=== PATIENT | male | born 1965 | race Caucasian/White ===

== ENCOUNTER → 2018-07-31 | Outpatient (CLI) | payer OTHER | LOC: M WUC 10:16 | DX: M54.5 Low back pain (principal) | CPT/HCPCS: 72110 ==

== ENCOUNTER → 2019-04-30 | Outpatient (CLI) | payer OTHER ==
--- NOTE | 2019-04-30 14:12 | REP ---
Clinical: Pain. Technique: AP, lateral, bilateral oblique and sunrise views of the right knee. Findings: Mild tricompartmental osteoarthritic degenerative changes include cortical irregularity, subchondral sclerosis, minimal joint space narrowing, and early osteophytosis. Lateral view cannot exclude small suprapatellar effusion. No acute fracture or dislocation. Impression: Mild tricompartmental osteoarthritic degenerative changes. Electronically Signed by Gurjit Evans MD 04/30/2019 02:05 P
== END ==
LOC: M WUC 13:43
PROVIDERS: ATTEND Nurse Practitioner Family
DX: M17.11 Unilateral primary osteoarthritis, right knee (principal); M25.761 Osteophyte, right knee

== ENCOUNTER → 2019-07-26 | Outpatient (CLI) | payer BC ==
--- NOTE | 2019-07-27 01:53 | REP ---
Clinical: Left shoulder pain. Technique: Internal rotation, external rotation, and Y view of the left shoulder. Findings: The acromioclavicular joint appears intact and normal. Humeral head appears normal. Subtle cortical irregularity along the inferior margin of the ossified glenoid rim cannot be excluded. No acute fracture dislocation. Subacromial space is within normal limits. Impression: Possible mild degenerative changes along the inferior margin of the glenoid. Electronically Signed by Gurjit Evans MD 07/27/2019 01:45 A
== END ==
LOC: M WUC 15:29
PROVIDERS: ATTEND Nurse Practitioner Adult Health
DX: M25.512 Pain in left shoulder (principal)

== ENCOUNTER → 2021-08-13 | Outpatient (REF) | payer BC | LOC: M LAB REF 11:12 | PROVIDERS: ATTEND Physician Assistant | DX: R05.9 Cough, unspecified (principal) ==

== ENCOUNTER → 2022-01-28 | Outpatient (REF) | payer BC ==
[2022-01-28 18:36] LABS: HEPATITIS B CORE ANTIBODY IGM NEGATIVE (NEGATIVE); HEPATITIS B SURFACE ANTIGEN NEGATIVE (NEGATIVE); HEPATITIS C VIRUS ABY INDEX 0.2 INDEX (<0.8)
== END ==
LOC: M LAB REF 16:13
PROVIDERS: ATTEND Nurse Practitioner Adult Health
DX: R74.8 Abnormal levels of other serum enzymes (principal)

== ENCOUNTER → 2022-02-07 | Outpatient (CLI) | payer BC | LOC: M RAD 11:47 | PROVIDERS: ATTEND Nurse Practitioner Adult Health | DX: R74.01 Elevation of levels of liver transaminase levels (principal) ==

== ENCOUNTER → 2023-05-02 | Outpatient (REF) | payer BC | LOC: M LAB REF 12:22 | PROVIDERS: ATTEND Physician Assistant Medical | DX: Z11.59 Encounter for screening for other viral diseases (principal) ==

== ENCOUNTER → 2024-09-09 | Outpatient (REF) | payer BC | LOC: M LAB REF 13:19 | PROVIDERS: ATTEND Nurse Practitioner Adult Health | DX: E03.9 Hypothyroidism, unspecified (principal) ==

== ENCOUNTER → 2024-10-11 | Outpatient (CLI) | payer BC ==
[2024-10-11 12:16] LABS: HEMATOCRIT 49.3 % (42.0-52.0); HEMOGLOBIN 16.8 g/dl (13.5-17.5); MEAN CORPUSCULAR HEMOGLOBIN 32.4 pg (27.0-33.0); MEAN CORPUSCULAR HGB CONC 34.1 g/dl (32.0-36.5); MEAN CORPUSCULAR VOLUME 95.2 fl (80.0-96.0); PLATELET COUNT, AUTOMATED 245 10^3/uL (150-450); RED BLOOD COUNT 5.18 10^6/uL (4.30-6.10); WHITE BLOOD COUNT 7.8 10^3/uL (4.0-10.0)
[2024-10-11 12:19] LABS: ALBUMIN 3.9 G/DL (3.2-5.2); ALKALINE PHOSPHATASE 70 U/L (40-129); ALT/SGPT 37 U/L (7.0-40); AST/SGOT 22 U/L (<34); BILIRUBIN,TOTAL 0.9 MG/DL (0.3-1.2); BLOOD UREA NITROGEN 14 MG/DL (9-23); CALCIUM LEVEL 10.3 MG/DL (8.3-10.6); CARBON DIOXIDE LEVEL 32 MMOL/L (20-31); CHLORIDE LEVEL 100 MMOL/L (98-107); CREATININE FOR GFR 1.12 MG/DL (0.70-1.30); GLOMERULAR FILTRATION RATE > 60.0 (>49); GLUCOSE, FASTING 89 MG/DL (74-106); POTASSIUM SERUM 4.5 MMOL/L (3.5-5.1); SODIUM LEVEL 137 MMOL/L (136-145); TOTAL PROTEIN 7.3 G/DL (5.7-8.2)
== END ==
LOC: M WUC 09:06
PROVIDERS: ATTEND Student in an Organized Health Care Education/Training Program
DX: R42 Dizziness and giddiness (principal)

== ENCOUNTER 2025-05-11 21:05 | Emergency (ER) | payer BC | END 2025-05-11 21:24 | disposition left against medical advice (07) | LOC: M ED 21:05 | DX: Z53.21 Procedure and treatment not carried out due to patient leaving prior to being seen by health care provider (principal) ==

== ENCOUNTER → 2025-08-01 | Outpatient (REF) | payer BC | LOC: M LAB REF 14:04 | PROVIDERS: ATTEND Nurse Practitioner Adult Health | DX: R97.20 Elevated prostate specific antigen [PSA] (principal) ==